=== PATIENT | female | born 1975 | race Hispanic/Latino ===

== ENCOUNTER 2021-09-19 22:35 | Emergency (ER) | payer SELFPAY ==
[~2021-09-19] VITALS: Ht 149.9 cm; Wt 86.2 kg
[2021-09-19 22:37] VITALS: BP 158/73
[2021-09-19] MEDS ORDERED: LIDOCAINE HCL 400MG/20ML VIAL ONE (23:10)
[2021-09-19] MEDS ORDERED: NAPR-1180 PO (23:57)
== END 2021-09-20 00:32 | disposition home or self-care (01) ==
LOC: EDH 22:35
DX: S63.283A Dislocation of proximal interphalangeal joint of left middle finger, initial encounter (principal); X58.XXXA Exposure to other specified factors, initial encounter; Y93.89 Activity, other specified; Y92.89 Other specified places as the place of occurrence of the external cause; Y99.8 Other external cause status
CPT/HCPCS: 26770; 73130; 99284; J3490

== ENCOUNTER 2021-10-15 02:06 | Emergency (ER) | payer SELFPAY ==
[~2021-10-15] VITALS: Ht 149.9 cm; Wt 86.6 kg
[~2021-10-15 02:06] MED LIST: NAPR-1180 PO
[2021-10-15 04:17] VITALS: BP 143/85
[2021-10-15] MEDS ORDERED: DiphenhydrAMINE HCL 50 MG/ML VIAL IM ONE (05:30)
[2021-10-15] MEDS ORDERED: HYDR-3421 PO (05:39)
== END 2021-10-15 06:24 | disposition home or self-care (01) ==
LOC: EDH 02:06
DX: R42 Dizziness and giddiness (principal); G47.00 Insomnia, unspecified; F41.9 Anxiety disorder, unspecified; I10 Essential (primary) hypertension; Z79.1 Long term (current) use of non-steroidal anti-inflammatories (NSAID)
CPT/HCPCS: 96372; 99283; J1200

== ENCOUNTER 2022-01-02 22:33 | Emergency (ER) | payer OTHER ==
[~2022-01-02] VITALS: Ht 149.9 cm; Wt 81.6 kg
[~2022-01-02 22:33] MED LIST changes: +HYDR-3421 PO
[2022-01-02] MEDS ORDERED: IBUP-2070 PO (23:09)
[2022-01-02] MEDS ORDERED: IBUPROFEN 600 MG TABLET PO ONE (23:30)
[2022-01-02 23:41] LABS: BILIRUBIN,URINE Negative (NEGATIVE); COLOR,URINE Yellow (YELLOW); GLUCOSE, URINE (UA) Negative (NEGATIVE); KETONES,URINE Negative (NEGATIVE); LEUKOCYTE ESTERASE ,URINE Negative (NEGATIVE); NITRATE,URINE Negative (NEGATIVE); OCCULT BLOOD,URINE Negative (NEGATIVE); PROTEIN,URINE Negative (NEGATIVE)
[2022-01-02 23:42] LABS: APPEARANCE,URINE SLIGHTLY CLOUDY (CLEAR)
[2022-01-02 23:43] LABS: HCG,QUAL RESULT NEGATIVE (NEGATIVE)
[2022-01-02 23:59] LABS: BACTERIA,URINE None Seen /HPF (None Seen); RBC,URINE 0-1 /HPF (0-1); SQUAMOUS EPITHELIAL CELL,UR Moderate /HPF (0-2); WBC,URINE 0-1 /HPF (0-1)
[2022-01-03 00:06] VITALS: BP 126/72
== END 2022-01-03 00:07 | disposition home or self-care (01) ==
LOC: EDH 22:33
DX: M25.511 Pain in right shoulder (principal); M25.551 Pain in right hip; F41.9 Anxiety disorder, unspecified; Z79.1 Long term (current) use of non-steroidal anti-inflammatories (NSAID); V49.59XA Passenger injured in collision with other motor vehicles in traffic accident, initial encounter; Y93.89 Activity, other specified; Y92.89 Other specified places as the place of occurrence of the external cause; Y99.8 Other external cause status
CPT/HCPCS: 72170; 81001; 81025

== ENCOUNTER 2022-05-26 11:51 | Emergency (ER) | payer OTHER ==
[~2022-05-26] VITALS: Ht 137.2 cm; Wt 81.6 kg
[~2022-05-26 11:51] MED LIST changes: +IBUP-2070 PO
[2022-05-26] MEDS ORDERED: LORAZEPAM 1 MG TABLET PO ONE (12:30)
[2022-05-26 12:31] LABS: BASOPHILS % (AUTO) 0.4 % (0.0-5.0); HEMATOCRIT 35.1 % (36-48); LYMPHOCYTES % (AUTO) 22.6 % (21.0-51.0); MEAN CORPUSCULAR HEMOGLOBIN 29.1 pg (27.0-33.0); MEAN CORPUSCULAR HGB CONC 34.2 g/dL (32.0-36.0); MONOCYTES % (AUTO) 4.7 % (3.0-13.0); PLATELET COUNT (AUTO) 399 K/uL (130-400); RED BLOOD CELL COUNT(AUTO) 4.13 MIL/uL (4.00-5.50); RED CELL DISTRIBUTION WIDTH 14.4 % (11.0-15.5); WHITE BLOOD COUNT (AUTO) 9.6 K/uL (4.8-10.8)
[2022-05-26 12:34] LABS: APPEARANCE,URINE CLEAR (CLEAR); BILIRUBIN,URINE NEGATIVE (NEGATIVE); COLOR,URINE YELLOW (YELLOW); GLUCOSE, URINE (UA) NEGATIVE (NEGATIVE); KETONES,URINE NEGATIVE (NEGATIVE); LEUKOCYTE ESTERASE ,URINE NEGATIVE (NEGATIVE); NITRATE,URINE NEGATIVE (NEGATIVE); OCCULT BLOOD,URINE TRACE-INTACT (NEGATIVE); PROTEIN,URINE NEGATIVE (NEGATIVE); UROBILINOGEN,URINE 0.2 mg/dL (0.2-1.0)
[2022-05-26 12:36] VITALS: BP 151/94
[2022-05-26 12:40] LABS: BACTERIA,URINE Rare /HPF (None Seen); RBC,URINE 0-1 /HPF (0-1); SQUAMOUS EPITHELIAL CELL,UR Rare /HPF (0-2); WBC,URINE 0-1 /HPF (0-1)
[2022-05-26 12:49] LABS: CREATININE 0.6 mg/dL (0.5-1.5); POTASSIUM 3.6 mmol/L (3.5-5.1)
[2022-05-26 12:54] LABS: ALBUMIN 3.7 g/dL (3.5-5.0); TOTAL PROTEIN, SERUM 7.8 g/dL (6.0-8.3)
[2022-05-26] MEDS ORDERED: HYDR-3421 PO (13:21)
[2022-05-26] MEDS ORDERED: CITA20TA17 PO (13:21)
== END 2022-05-26 14:03 | disposition home or self-care (01) ==
LOC: EDH 11:51
DX: F43.0 Acute stress reaction (principal); F41.9 Anxiety disorder, unspecified; E66.9 Obesity, unspecified; Z68.41 Body mass index [BMI] 40.0-44.9, adult; Z79.1 Long term (current) use of non-steroidal anti-inflammatories (NSAID); Z79.899 Other long term (current) drug therapy
CPT/HCPCS: 36415; 80053; 81001; 81025; 84484; 85025

== ENCOUNTER 2023-11-03 19:10 | Emergency (ER) | payer OTHER ==
[~2023-11-03] VITALS: Ht 149.9 cm; Wt 93.0 kg
[~2023-11-03 19:10] MED LIST changes: +CITA20TA17 PO
[2023-11-03] MEDS ORDERED: KETOROLAC 60 MG VIAL (30MG/ML) IM ONE (20:30)
[2023-11-03] MEDS ORDERED: IBUP-2077 PO (21:32)
[2023-11-03 21:42] VITALS: BP 132/68; PULSE 81; RESP 18; O2SAT 99
== END 2023-11-03 21:52 | disposition home or self-care (01) ==
LOC: EDH 19:10
DX: S46.811A Strain of other muscles, fascia and tendons at shoulder and upper arm level, right arm, initial encounter (principal); E66.9 Obesity, unspecified; Z79.899 Other long term (current) drug therapy; X58.XXXA Exposure to other specified factors, initial encounter; Y93.89 Activity, other specified; Y92.89 Other specified places as the place of occurrence of the external cause; Y99.8 Other external cause status
CPT/HCPCS: 99283; 73030; 96372; J1885